=== PATIENT | female | born 1970 | race Caucasian/White ===

== ENCOUNTER → 2019-04-03 | Outpatient (CLI) | payer OTHER ==
[~2019-04-03] MED LIST: PARO10 PO; VITAMIN B125000 MCG PO
[2019-04-03 22:37] LABS: Candida species (DNA Probe) Negative (NEGATIVE); G. vaginalis (DNA Probe) Negative (NEGATIVE); T. vaginalis (DNA Probe) Negative (NEGATIVE)
[2019-04-05 20:06] LABS: CHLAMYDIA TRACHOMATIS, NAA Negative (Negative); NEISSERIA GONORRHOEAE, NAA Negative (Negative)
== END ==
LOC: LAB SHORT 13:40 → LAB 13:40
PROVIDERS: Registered Nurse Community Health
DX: Z11.3 Encounter for screening for infections with a predominantly sexual mode of transmission (principal); Z20.2 Contact with and (suspected) exposure to infections with a predominantly sexual mode of transmission; Z72.51 High risk heterosexual behavior
CPT/HCPCS: 87480; 87491; 87510; 87591; 87660

== ENCOUNTER → 2021-10-29 | Outpatient (CLI) | payer OTHER | END | disposition home or self-care (01) | LOC: LAB SHORT 16:31 → LAB 16:31 | DX: R19.7 Diarrhea, unspecified (principal) | CPT/HCPCS: 83993 ==

== ENCOUNTER → 2022-04-20 | Outpatient (CLI) | payer OTHER ==
[2022-04-20 20:00] LABS: CHOL/HDL RATIO 3.4; Cholesterol 214 mg/dL (50-200); HDL Cholesterol 63 mg/dL (>39); Low Density Lipoprotein Chol 127 mg/dL (0-110); Triglycerides 121 mg/dL (30-160); Very Low Density Lipoprot Chol 24 mg/dL (6-32)
== END | disposition home or self-care (01) ==
LOC: LAB 18:43 → LAB SHORT 18:43
PROVIDERS: Nurse Practitioner Family
DX: E78.5 Hyperlipidemia, unspecified (principal); R73.01 Impaired fasting glucose
CPT/HCPCS: 80061; 83036

== ENCOUNTER → 2022-10-04 | Outpatient (CLI) | payer OTHER ==
[2022-10-04 19:12] LABS: BASOPHILS ABSOLUTE AUTO 0.04 K/mm3 (0.00-0.23); BASOPHILS PERCENT AUTO 1 % (0-2); EOSINOPHILS ABSOLUTE AUTO 0.15 K/mm3 (0.00-0.68); EOSINOPHILS PERCENT AUTO 2 % (0-6); Hematocrit 36.2 % (33.0-51.0); IMMATURE GRAN ABSOLUTE AUTO 0.02 K/mm3 (0.00-0.10); IMMATURE GRAN PERCENT AUTO 0 % (0-1); LYMPHOCYTES ABSOLUTE AUTO 1.96 K/mm3 (0.84-5.20); LYMPHOCYTES PERCENT AUTO 28 % (21-46); MONOCYTES ABSOLUTE AUTO 0.43 K/mm3 (0.16-1.47); MONOCYTES PERCENT AUTO 6 % (4-13); Mean Corpuscular HGB 29.4 pg (26.0-34.0); Mean Corpuscular HGB Conc 33.1 g/dL (31.5-36.5); Mean Corpuscular Volume 89 fL (80-100); NEUTROPHILS ABSOLUTE AUTO 4.31 K/mm3 (1.96-9.15); NEUTROPHILS PERCENT AUTO 62 % (41-73); Platelet Count 324 K/mm3 (150-400); RDW Coefficient Variation 13.1 % (11.7-14.2); RDW Standard Deviation 42.8 fL (35.1-46.3); Red Blood Cell Count 4.08 M/mm3 (3.80-5.20); White Blood Cell Count 6.91 K/mm3 (4.00-11.30)
[2022-10-04 19:26] LABS: Albumin, Blood 3.4 g/dL (3.4-5.0); Bilirubin, Total 0.3 mg/dL (0.1-1.0); Bun/Creatinine Ratio 22.8 (12.0-20.0); Calcium, Blood 8.8 mg/dL (8.5-10.1); Creatinine, Blood 0.7 mg/dL (0.40-1.00); Globulin, Blood 3.5 g/dL (2.2-4.0); Potassium, Blood 4.3 mmol/L (3.5-5.5); Total Protein, Blood 6.9 g/dL (6.4-8.2)
== END | disposition home or self-care (01) ==
LOC: LAB 17:57 → LAB SHORT 17:57
PROVIDERS: Nurse Practitioner Family
DX: F41.8 Other specified anxiety disorders (principal); R73.01 Impaired fasting glucose
CPT/HCPCS: 80053; 83036; 85025

== ENCOUNTER 2023-07-19 11:34 | Day surgery (SDC) | payer OTHER ==
[~2023-07-19] VITALS: Ht 154.9 cm; Wt 75.4 kg
[2023-07-19] VITALS (19 sets, daily range): BP systolic 113–167; BP diastolic 64–96
[~2023-07-19 11:34] MED LIST changes: +CENTRUM MVI PO; +LOPE2C PO; +NAPR500 PO; +VITAMIN B121000 MCG PO; -VITAMIN B125000 MCG PO
[2023-07-19] MEDS ORDERED: Metoclopramide HCl 5MG / ML 2ML Vial IV PRN (12:00)
[2023-07-19] MEDS ORDERED: Promethazine HCl 25 MG Tab PO PRN (12:00)
[2023-07-19] MEDS ORDERED: OxyCODONE HCL 5 MG TAB PO PRN ×2 (12:00→12:05)
[2023-07-19] MEDS ORDERED: Lactated Ringer's 1,000 ML IV SCH ×2 (12:05→12:35)
[2023-07-19] MEDS ORDERED: DiphenhydrAMINE HCL 25 MG Cap PO PRN (12:05)
[2023-07-19] MEDS ORDERED: FLU VACC QS2023-24(6MOS UP)/PF 60 MCG/0.5 ML SYRINGE IM ONE (12:05)
[2023-07-19] MEDS ORDERED: Magnesium Hydroxide Conc 10 ML UDC PO PRN (12:05)
[2023-07-19] MEDS ORDERED: Ondansetron HCl 2 MG / ML 2ML Vial IV PRN (12:05)
[2023-07-19] MEDS ORDERED: HYDROmorphone HCl/Pf 1MG SYR IV PRN (12:10)
[2023-07-19] MEDS ORDERED: Bisacodyl 10 MG Supp PR PRN (12:10)
[2023-07-19] MEDS ORDERED: Ropivacaine 0.5% HCl/Pf 67.75 MG,EPINEPHrine HCL 0.25 MG,Ketorolac Tromethamine 15 MG,C... INFIL SCH (12:35)
[2023-07-19] MEDS ORDERED: TRANEXAMIC ACID IV SCH (12:35)
[2023-07-19] MEDS ORDERED: NS IV SCH (12:35)
[2023-07-19] MEDS ORDERED: OxyCODONE HCL 10 MG TABCR PO SCH (12:35)
[2023-07-19] MEDS ORDERED: Acetaminophen 500 MG Tab PO SCH ×2 (12:35→16:00)
[2023-07-19] MEDS ORDERED: CeFAZolin Sodium 2,000 MG in NS 50 ML IV SCH ×2 (12:35→21:00)
[2023-07-19] MEDS ORDERED: Chlorhexidine Mouth Care 15 ML UDC MT SCH (12:35)
[2023-07-19] MEDS ORDERED: Oxybutynin Chlo10 MG PO (12:38)
[2023-07-19] MEDS ORDERED: MULTI-VITAMIN1 EAC2 PO (12:38)
[2023-07-19] MEDS ORDERED: propofoL 20 ML IV ONE (15:43)
[2023-07-19] MEDS ORDERED: FentaNYL Citrate 50 MCG/ML 2 ML Injection ONE ×2 (15:43→17:27)
[2023-07-19] MEDS ORDERED: HYDROmorphone HCl/Pf 1MG SYR ONE (15:57)
[2023-07-19] MEDS ORDERED: Ondansetron HCl 2 MG / ML 2ML Vial ONE (15:57)
[2023-07-19] MEDS ORDERED: Dexamethasone Sod Phos 10 MG/ML 1ML VIAL ONE (15:57)
[2023-07-19] MEDS ORDERED: Metoclopramide HCl 5MG / ML 2ML Vial ONE (15:57)
[2023-07-19] MEDS ORDERED: Ketorolac Tromethamine 30mg Vial ONE (17:27)
[2023-07-19] MEDS ORDERED: Ketorolac Tromethamine 15mg Vial IV SCH (18:00)
--- NOTE | 2023-07-19 18:00 | NUR ---
PT IS TACHYCARDIC AT 113 HE STATES NO NEW ORDERS TO CALL HIM IF IT INCREASES TO 130'S PT HAS NO COMPLAINTS EXCEPT NOSE ITCHES AND RIGHT KNEE PAIN
--- NOTE | 2023-07-19 18:30 | NUR ---
ARRIVAL TO SURGICAL UNIT ALERT, ORIENTED, & PLEASANT. ASSESSMENT CHARTED. DENIES N/V. SNACKS & WATER GIVEN. WILL MEDICATE FOR HIGH PAIN ONCE SNACKS STAY DOWN.
[2023-07-19] MEDS ORDERED: Docusate Sodium 100 MG Cap PO SCH (21:00)
[2023-07-20 04:24] LABS: BASOPHILS ABSOLUTE AUTO 0.02 K/mm3 (0.00-0.23); BASOPHILS PERCENT AUTO 0 % (0-2); EOSINOPHILS PERCENT AUTO 0 % (0-6); Hematocrit 31.7 % (33.0-51.0); Hemoglobin 10.4 g/dL (11.5-16.0); IMMATURE GRAN ABSOLUTE AUTO 0.05 K/mm3 (0.00-0.10); IMMATURE GRAN PERCENT AUTO 0 % (0-1); LYMPHOCYTES ABSOLUTE AUTO 0.71 K/mm3 (0.84-5.20); LYMPHOCYTES PERCENT AUTO 6 % (21-46); MONOCYTES ABSOLUTE AUTO 0.34 K/mm3 (0.16-1.47); MONOCYTES PERCENT AUTO 3 % (4-13); Mean Corpuscular HGB 28.9 pg (26.0-34.0); Mean Corpuscular HGB Conc 32.8 g/dL (31.5-36.5); Mean Corpuscular Volume 88 fL (80-100); Mean Platelet Volume 9.2 fL (9.1-12.4); NEUTROPHILS ABSOLUTE AUTO 11.78 K/mm3 (1.96-9.15); NEUTROPHILS PERCENT AUTO 91 % (41-73); Platelet Count 264 K/mm3 (150-400); RDW Coefficient Variation 13.4 % (11.7-14.2); RDW Standard Deviation 43.7 fL (35.1-46.3)
[2023-07-20 04:36] VITALS: BP 126/68
[2023-07-20 04:42] LABS: Bun/Creatinine Ratio 17.9 (12.0-20.0); Calcium, Blood 8.6 mg/dL (8.5-10.1); Creatinine, Blood 0.67 mg/dL (0.40-1.00); Potassium, Blood 4.6 mmol/L (3.5-5.5)
--- NOTE | 2023-07-20 04:51 | NUR ---
SHIFT SUMMARY POD1 R TKA. SENSATION AND CIRCULATION REMAINS INTACT. DRESSING IS C.D.I. VSS, PT WEANED FROM 3L TO RA T/O THE NIGHT. INTERMITTENTLY TACHYCARDIC PER TREND. PT REMAINS ASYMPTOMATIC. PT SLEPT ON AND OFF T/O THE NIGHT. AMBULATED TO THE BATHROOM TO VOID W/O DIFFICULTY. TOLLERATING PO INTAKE W/O N/V. MEDICATED FOR PAIN WITH PRN'S AND SCHEDULED. PT REPORTS PAIN HAS DRASTICALLY IMPROVED FROM WHEN SHE WOKE UP FROM SURGERY. NO ACUTE EVENTS NOTED T/O THE NIGHT. PLAN FOR PT AND D/C HOME TODAY
[2023-07-20 07:05] VITALS: BP 144/76
[2023-07-20] MEDS ORDERED: Aspirin 81 MG Chew PO SCH (08:00)
[2023-07-20] MEDS ORDERED: ASPI81CH PO (08:40)
[2023-07-20] MEDS ORDERED: Percocet 5-3251 EACH PO (08:40)
[2023-07-20] MEDS ORDERED: Multivitamins/Minerals 1 Tab PO SCH (09:00)
[2023-07-20] MEDS ORDERED: PARoxetine HCl 20 MG Tab PO SCH (09:00)
[2023-07-20] MEDS ORDERED: Loperamide HCl 2 MG Cap PO SCH (09:00)
--- NOTE | 2023-07-20 10:45 | NUR ---
DISCHARGE EDUCATION HAS CLEARED THERAPY. EATING, DRINKING, & VOIDING WELL. PAIN WELL CONTROLLED & FEELS COMFORTABLE w/ DC PLAN. RX GIVEN TO DAUGHTER YESTERDAY. WAITING FOR DAUGHTER TO ARRIVE.
--- NOTE | 2023-07-20 10:50 | NUR ---
DAUGHTER ARRIVES. PT STATES SHE WISHES TO STAY LONGER TO REST.
--- NOTE | 2023-07-20 11:21 | NUR ---
Pt. is awake in bed and awaiting her daughter to arrive to be discharged. Pt. is pleasant and facilitated a life review. Considered matters of farzana, belief and work. Pt. displays evidence of being engaged, aware, and preprared to rehab and recover form her procedure. Prayed for Pt. Pt. verbalized gratitude for the spiritual care visit.
--- NOTE | 2023-07-20 12:18 | NUR ---
ESCORTED OUT VIA WC
== END 2023-07-20 12:18 | disposition home or self-care (01) ==
LOC: ORSCMMR 11:34 → ORD 12:30 → ORSCMMR 12:30 → ORD 15:00 → SURS 18:11 → ORSCMMR 07-20 12:18
PROVIDERS: Orthopaedic Surgery
PROC: 0SRC0JA Replacement of Right Knee Joint with Synthetic Substitute, Uncemented, Open Approach (ICD-10-PCS; principal; 2023-07-19 12:30)
DX: M17.11 Unilateral primary osteoarthritis, right knee (principal); G35 Multiple sclerosis; Z79.899 Other long term (current) drug therapy
CPT/HCPCS: 36415; 73560-RT; 80048; 85025; 94762; 97110; 97116; 97161; A9270; C1776; J0171; J0690; J0735; J1100; J1170; J1885; J2405; J2704; J2765; J2795; J3010; J7120

== ENCOUNTER → 2024-03-22 | Outpatient (CLI) | payer OTHER ==
[~2024-03-22] MED LIST changes: +ASPI81CH PO; +MULTI-VITAMIN1 EAC2 PO; +Oxybutynin Chlo10 MG PO; +Percocet 5-3251 EACH PO
[2024-03-24 22:11] LABS: PANCREATIC ELASTASE,FECAL >800 ug/g (>=100)
== END | disposition home or self-care (01) ==
LOC: LAB SHORT 14:38 → LAB 14:38
PROVIDERS: Nurse Practitioner Family
DX: R19.7 Diarrhea, unspecified (principal)
CPT/HCPCS: 82653

== ENCOUNTER → 2024-07-11 | Outpatient (CLI) | payer OTHER | END | disposition home or self-care (01) | LOC: LAB SHORT 07:21 → LAB 07:21 | DX: B35.1 Tinea unguium (principal); L60.2 Onychogryphosis | CPT/HCPCS: 87220; 88305; 88312 ==

== ENCOUNTER → 2025-05-21 | Outpatient (CLI) | payer OTHER ==
[2025-05-21 19:40] LABS: BASOPHILS ABSOLUTE AUTO 0.05 K/mm3 (0.00-0.23); BASOPHILS PERCENT AUTO 1 % (0-2); EOSINOPHILS ABSOLUTE AUTO 0.16 K/mm3 (0.00-0.68); EOSINOPHILS PERCENT AUTO 2 % (0-6); Hematocrit 39.1 % (33.0-51.0); Hemoglobin 12.5 g/dL (11.5-16.0); IMMATURE GRAN ABSOLUTE AUTO 0.03 K/mm3 (0.00-0.10); IMMATURE GRAN PERCENT AUTO 0 % (0-1); LYMPHOCYTES ABSOLUTE AUTO 2.24 K/mm3 (0.84-5.20); LYMPHOCYTES PERCENT AUTO 30 % (21-46); MONOCYTES ABSOLUTE AUTO 0.43 K/mm3 (0.16-1.47); MONOCYTES PERCENT AUTO 6 % (4-13); Mean Corpuscular HGB Conc 32.0 g/dL (31.5-36.5); Mean Corpuscular Volume 88 fL (80-100); NEUTROPHILS ABSOLUTE AUTO 4.67 K/mm3 (1.96-9.15); NEUTROPHILS PERCENT AUTO 62 % (41-73); NRBC ABSOLUTE 0.00 K/mm3 (0.00-0.02); NRBC Auto 0.0 /100 WBC (0.0-0.2); Platelet Count 350 K/mm3 (150-400); RDW Coefficient Variation 13.6 % (11.7-14.2); RDW Standard Deviation 43.7 fL (35.1-46.3)
[2025-05-21 20:06] LABS: Anion Gap 8 mmol/L (3-11); Blood Urea Nitrogen 19 mg/dL (8-24); CHOL/HDL RATIO 3.1; CO2, Blood 29 mmol/L (21-32); Calcium, Blood 9.1 mg/dL (8.5-10.1); Chloride, Blood 102 mmol/L (98-108); Cholesterol 231 mg/dL (50-200); Creatinine, Blood 0.63 mg/dL (0.40-1.00); Ferritin, Serum 22 ng/mL (8-252); Glucose, Blood 84 mg/dL (70-99); HDL Cholesterol 74 mg/dL (>39); LDL/HDL RATIO 1.9; Low Density Lipoprotein Chol 137 mg/dL (0-110); Potassium, Blood 3.7 mmol/L (3.5-5.5); Sodium, Blood 135 mmol/L (136-145); Thyroid Stimulating Hormone 1.430 uIU/mL (0.360-4.800); Total Iron Binding Capacity 423 ug/dL (250-450); Triglycerides 99 mg/dL (30-160); Very Low Density Lipoprot Chol 19 mg/dL (6-32)
== END ==
LOC: LAB 18:40 → LAB SHORT 18:40
PROVIDERS: Student in an Organized Health Care Education/Training Program
DX: R73.03 Prediabetes (principal); D50.9 Iron deficiency anemia, unspecified; E78.5 Hyperlipidemia, unspecified; F41.8 Other specified anxiety disorders; M19.90 Unspecified osteoarthritis, unspecified site
CPT/HCPCS: 80048; 80061; 82728; 83036; 83540; 83550; 84439; 84443; 85025